=== PATIENT | female | born 1975 ===

== ENCOUNTER 2018-01-01 02:54 | Inpatient (IN) | payer BC ==
--- NOTE | 2018-01-01 03:44 | C.PDOC ---
History Of Present Illness 42 year old female presents to the ER as a transfer from [facility] for psych admission. Patient has a Hx of ambien overdose 1.5 days ago. She was medically cleared by [facility]. Chief Complaint (Nursing): Psychiatric Evaluation History Per: Patient History/Exam Limitations: no limitations Current Symptoms Are (Timing): Still Present Suicide/Self Injury Attempted (Context): None Involuntary Hold By: None Recent travel outside of the [place]: No Past Medical History Reviewed: Historical Data, Nursing Documentation, Vital Signs Vital Signs: Last Vital Signs Temp 98.8 F 01/01/18 02:59 Pulse 73 01/01/18 05:46 Resp 18 01/01/18 05:46 BP 111/70 01/01/18 05:46 Pulse Ox 96 01/01/18 06:01 - Medical History PMH: Anxiety, Bipolar Disorder, Depression, Hyperthyroidism Family History: States: Unknown Family Hx - Social History Hx Alcohol Use: Yes Hx Substance Use: No - Immunization History Hx Tetanus Toxoid Vaccination: No Hx Influenza Vaccination: No Hx Pneumococcal Vaccination: No Review Of Systems Constitutional: Negative for: Fever, Chills Cardiovascular: Negative for: Chest Pain, Palpitations Respiratory: Negative for: Cough, Shortness of Breath Gastrointestinal: Negative for: Nausea, Vomiting Physical Exam - Physical Exam Appears: Other (Lethargic, Hypotensive) Skin: Normal Color, Warm, Dry Head: Atraumatic, Normacephalic Eye(s): bilateral: Normal Inspection Oral Mucosa: Moist Neck: Normal, Supple Chest: Symmetrical, No Tenderness Cardiovascular: Rhythm Regular Respiratory: Normal Breath Sounds, No Rales, No Rhonchi, No Wheezing Gastrointestinal/Abdominal: Soft, No Tenderness Neurological/Psych: Oriented x3, Normal Speech ED Course And Treatment - Laboratory Results Result Diagrams: 01/01/18 03:54 01/01/18 03:54 ECG: Interpreted By Me, Viewed By Me ECG Rhythm: Sinus Rhythm ECG Interpretation: No Acute Changes Interpretation Of ECG: NSR, low voltage QRS, no acute changes Rate From EC O2 Sat by Pulse Oximetry: 96 (Room air) Pulse Ox Interpretation: Normal Progress Note: CT head, blood work, and urinalysis ordered. IV fluids administered. On reevaluation, patient's BP is 98/58, she is now alert, responds to verbal stimuli and questioning. Patient was accepted by Dr. Wilson for admission, waiting for patient to be more alert before admission. Disposition Discussed With DrTeresa: Willy Stevens Comment: ICU eval.-Dr. Padilla notified, evaluated patient in the ER. Doctor Will See Patient In The: Hospital - Disposition Referrals: Non [facility] Provider, [Primary Care Provider] - Disposition: HOSPITALIZED Disposition Time: 05:59 Condition: GUARDED Forms: [facility] (Haitian) - POA Present On Arrival: None - Clinical Impression Clinical Impression: Drug overdose, intentional, Suicidal ideation - Scribe Statement The provider has reviewed the documentation as recorded by the Scribe Avinash Dejesus All medical record entries made by the Scribe were at my direction and personally dictated by me. I have reviewed the chart and agree that the record accurately reflects my personal performance of the history, physical exam, medical decision making, and the department course for this patient. I have also personally directed, reviewed, and agree with the discharge instructions and disposition.
[2018-01-01] MEDS ORDERED: Sodium Chloride 0.9% 1,000 ML IV ONE ×4 (03:46→05:44)
[2018-01-01 03:57] LABS: BASO # 0.1 K/uL (0.0-0.2); BASO % 0.9 % (0.0-2.0); EOS # 0.1 K/uL (0.0-0.7); EOS % 0.8 % (0.0-4.0); HEMOGLOBIN 11.7 g/dL (11.0-16.0); LYMPH # 1.5 K/uL (1.0-4.3); LYMPH % 16.8 % (20.0-40.0); MEAN CELL VOLUME 91.1 fL (81.0-99.0); MEAN CORPUSCULAR HEMOGLOBIN 31.2 pg (27.0-31.0); MEAN CORPUSCULAR HGB CONC 34.2 g/dL (33.0-37.0); MONO # 0.5 K/uL (0.0-0.8); MONO % 5.6 % (0.0-10.0); NEUT # 6.9 K/uL (1.8-7.0); NEUT % 75.9 % (50.0-75.0); RBC 3.75 Mil/uL (3.80-5.20); RED CELL DISTRIBUTION WIDTH 12.6 % (11.5-14.5); WHITE BLOOD COUNT 9.1 K/uL (4.8-10.8)
[2018-01-01 04:11] LABS: ALB/GLOB RATIO 1.3 (1.0-2.1); ALBUMIN 3.4 g/dL (3.5-5.0); ALT/SGPT 33 U/L (9-52); AST/SGOT 19 U/L (14-36); BLOOD UREA NITROGEN 9 mg/dL (7-17); CALCIUM 8.4 mg/dl (8.6-10.4); GFR AFRICAN-AMERICAN > 60; GFR NON-AFRICAN AMERICAN > 60
[2018-01-01 04:15] LABS: PROTHROMBIN TIME 10.8 SECONDS (9.7-12.2)
[2018-01-01 04:16] LABS: ACETAMINOPHEN < 10.0 ug/mL (10.0-30.0); SALICYLATE < 1.0 mg/dL 1
[2018-01-01 04:18] LABS: ABG ALLEN TEST POS; ARTERIAL BLOOD GAS HCO3 24.7 mmol/L (21-28); ARTERIAL BLOOD GAS HEMOGLOBIN 10.9 g/dL (11.7-17.4); ARTERIAL BLOOD GAS O2 SAT 96.8 % (95-98); ARTERIAL BLOOD GAS PCO2 41 mm/Hg (35-45); ARTERIAL BLOOD GAS PH 7.39 (7.35-7.45); ARTERIAL BLOOD GAS PO2 68 mm/Hg (80-100); ARTERIAL BLOOD GAS TCO2 26.1 mmol/L (22-28)
[2018-01-01 04:31] LABS: HCG,QUALITATIVE URINE NEGATIVE (NEGATIVE); URINE BACTERIA OCC (<OCC); URINE BILIRUBIN NEGATIVE (NEGATIVE); URINE BLOOD NEGATIVE (NEGATIVE); URINE CLARITY Clear (Clear); URINE COLOR Yellow (YELLOW); URINE GLUCOSE (UA) NORMAL (Normal); URINE LEUKOCYTE ESTERASE NEG Leu/uL (Negative); URINE PROTEIN NEGATIVE (NEGATIVE)
[2018-01-01 04:40] LABS: BARBITURATES, UR NEGATIVE (NEGATIVE); OPIATES, UR NEGATIVE (NEGATIVE); PHENCYCLIDINE, UR NEGATIVE (NEGATIVE)
[2018-01-01 04:43] LABS: BENZODIAZEPINES, UR POSITIVE (NEGATIVE)
[2018-01-01 04:46] LABS: T3 1.01 nmol/L (1.49-2.60)
[2018-01-01] MEDS ORDERED: Flumazenil 0.1 mg/ml Inj (5ml) IVP ONE (05:34)
[2018-01-01] MEDS ORDERED: Flumazenil 0.1 mg/ml Inj (5ml) IVP STA (05:41)
--- NOTE | 2018-01-01 06:00 | CP.PCM.CON ---
History of Present Illness - History of Present Illness History of Present Illness: 42 year old female with h/o bipolar disorder/ depression,asthma,hypothyroidism presents to the ER as a transfer from [facility] for psych admission. Patient has a Hx of ambien overdose 12/30/17. She was medically cleared by [facility]. In ER patient was very lethargic,hypotensive,hypoxic with urine toxicology positive for benzodizepines.She was given flumezanil with improvement in mental status.Patient stated that in addition to ambien she took clonazepam (about 60 tab) and xanax (15 tab) prescribed by her psychiatrist. Poison control recommended continued observation for respiratory depression Review of Systems - Review of Systems Systems not reviewed;Unavailable: Altered Mental Status - Constitutional Constitutional: Lethargy. absent: Chills, Weakness - EENT Eyes: absent: Pain Nose/Mouth/Throat: absent: Hoarsness, Sore Throat - Cardiovascular Cardiovascular: absent: Chest Pain, Dyspnea - Respiratory Respiratory: absent: Cough, Dyspnea - Gastrointestinal Gastrointestinal: absent: Abdominal Pain, Nausea, Vomiting - Genitourinary Genitourinary: absent: Dysuria - Musculoskeletal Musculoskeletal: absent: Stiffness - Neurological Neurological: absent: Focal Weakness Past Patient History - Infectious Disease Hx of Infectious Diseases: None - Past Social History Smoking Status: Never Smoked Home Situation {Lives}: With Family - PULMONARY Hx Asthma: Yes - ENDOCRINE/METABOLIC Hx Hyperthyroidism: Yes - PSYCHIATRIC Hx Anxiety: Yes Hx Bipolar Disorder: Yes Hx Depression: Yes Hx Substance Use: No - SURGICAL HISTORY Hx Section: Yes Other/Comment: BREAST AUGMENTATION., ABDOMINOPLASTY - ANESTHESIA Hx Anesthesia: Yes Hx Anesthesia Reactions: No Meds Allergies/Adverse Reactions: Allergies Allergy/AdvReac Type Severity Reaction Status Date / Time levofloxacin [From Levaquin] Allergy Verified 01/01/18 02:58 - Medications Medications: Current Medications Sodium Chloride (Sodium Chloride 0.9%) 1,000 mls @ 100 mls/hr IV .Q10H ONE Stop: 01/01/18 14:39 Sodium Chloride (Sodium Chloride 0.9%) 1,000 mls @ 1,000 mls/hr IV .Q1H ONE Stop: 01/01/18 06:43 Last Admin: 01/01/18 05:46 Dose: 1,000 mls/hr Physical Exam - Constitutional Appears: No Acute Distress - Head Exam Head Exam: ATRAUMATIC, NORMAL INSPECTION, NORMOCEPHALIC - Eye Exam Eye Exam: EOMI, Normal appearance Pupil Exam: NORMAL ACCOMODATION - ENT Exam ENT Exam: Mucous Membranes Moist - Neck Exam Neck exam: Positive for: Normal Inspection - Respiratory Exam Respiratory Exam: Clear to Auscultation Bilateral, NORMAL BREATHING PATTERN - Cardiovascular Exam Cardiovascular Exam: REGULAR RHYTHM - GI/Abdominal Exam GI & Abdominal Exam: Normal Bowel Sounds, Soft. absent: Tenderness - Extremities Exam Extremities exam: Positive for: normal inspection, pedal pulses present. Negative for: pedal edema, tenderness - Back Exam Back exam: NORMAL INSPECTION - Neurological Exam Neurological exam: Alert, CN II-XII Intact, Oriented x3 Additional comments: Soon afer flumezanil patient was able to give history and gradually became drowsy again - Skin Skin Exam: Intact, Normal Color, Warm Results - Vital Signs Recent Vital Signs: Last Vital Signs Temp 98.8 F 01/01/18 02:59 Pulse 73 01/01/18 05:46 Resp 18 01/01/18 05:46 BP 111/70 01/01/18 05:46 Pulse Ox 96 01/01/18 05:58 - Labs Result Diagrams: 01/01/18 03:54 01/01/18 03:54 Labs: Laboratory Results - last 24 hr 01/01/18 01/01/18 01/01/18 03:54 03:54 04:03 WBC 9.1 RBC 3.75 L Hgb 11.7 Hct 34.2 MCV 91.1 MCH 31.2 H MCHC 34.2 RDW 12.6 Plt Count 203 MPV 7.0 L Neut % (Auto) 75.9 H Lymph % (Auto) 16.8 L [place] % (Auto) 5.6 Eos % (Auto) 0.8 Baso % (Auto) 0.9 Neut # (Auto) 6.9 Lymph # (Auto) 1.5 [place] # (Auto) 0.5 Eos # (Auto) 0.1 Baso # (Auto) 0.1 PT 10.8 INR 1.0 APTT 26 Puncture Site pCO2 pO2 HCO3 ABG pH ABG Total CO2 ABG O2 Saturation ABG Base Excess ABG Hemoglobin ABG Carboxyhemoglobin POC ABG HHb (Measured) ABG Methemoglobin David Test A-a O2 Difference Respiratory Index Hgb O2 Saturation Liter Flow FiO2 Sodium 143 Potassium 3.8 Chloride 108 H Carbon Dioxide 27 Anion Gap 12 BUN 9 Creatinine 0.9 Est GFR ( Amer) > 60 Est GFR (Non-Af Amer) > 60 Random Glucose 107 H Calcium 8.4 L Total Bilirubin 0.5 AST 19 ALT 33 Alkaline Phosphatase 55 Troponin I < 0.0120 Total Protein 6.0 L Albumin 3.4 L Globulin 2.6 Albumin/Globulin Ratio 1.3 Free T4 Total T3 1.01 L Urine Color Urine Clarity Urine pH Ur Specific [place] Urine Protein Urine Glucose (UA) Urine Ketones Urine Blood Urine Nitrate Urine Bilirubin Urine Urobilinogen Ur Leukocyte Esterase Urine WBC (Auto) Urine RBC (Auto) Urine Bacteria Urine HCG, Qual Salicylates Urine Opiates Screen Urine Methadone Screen Acetaminophen Ur Barbiturates Screen Ur Phencyclidine Scrn Ur Amphetamines Screen U Benzodiazepines Scrn U Oth Cocaine Metabols U Cannabinoids Screen Alcohol, Quantitative < 10 01/01/18 01/01/18 01/01/18 04:03 04:08 04:18 WBC RBC Hgb Hct MCV MCH MCHC RDW Plt Count MPV Neut % (Auto) Lymph % (Auto) [place] % (Auto) Eos % (Auto) Baso % (Auto) Neut # (Auto) Lymph # (Auto) [place] # (Auto) Eos # (Auto) Baso # (Auto) PT INR APTT Puncture Site R rad pCO2 41 pO2 68 L HCO3 24.7 ABG pH 7.39 ABG Total CO2 26.1 ABG O2 Saturation 96.8 ABG Base Excess -0.2 ABG Hemoglobin 10.9 L ABG Carboxyhemoglobin 1.8 H POC ABG HHb (Measured) 3.1 ABG Methemoglobin 0.8 David Test Pos A-a O2 Difference 30.0 Respiratory Index 0.4 Hgb O2 Saturation 94.3 L Liter Flow 0 FiO2 21.0 Sodium Potassium Chloride Carbon Dioxide Anion Gap BUN Creatinine Est GFR ( Amer) Est GFR (Non-Af Amer) Random Glucose Calcium Total Bilirubin AST ALT Alkaline Phosphatase Troponin I Total Protein Albumin Globulin Albumin/Globulin Ratio Free T4 Total T3 Urine Color Yellow Urine Clarity Clear Urine pH 5.0 Ur Specific [place] 1.011 Urine Protein Negative Urine Glucose (UA) Normal Urine Ketones Trace Urine Blood Negative Urine Nitrate Negative Urine Bilirubin Negative Urine Urobilinogen 2.0 H Ur Leukocyte Esterase Neg Urine WBC (Auto) 10 H Urine RBC (Auto) < 1 Urine Bacteria Occ H Urine HCG, Qual Negative Salicylates < 1.0 Urine Opiates Screen Urine Methadone Screen Acetaminophen < 10.0 L Ur Barbiturates Screen Ur Phencyclidine Scrn Ur Amphetamines Screen U Benzodiazepines Scrn U Oth Cocaine Metabols U Cannabinoids Screen Alcohol, Quantitative 01/01/18 01/01/18 04:18 04:19 WBC RBC Hgb Hct MCV MCH MCHC RDW Plt Count MPV Neut % (Auto) Lymph % (Auto) [place] % (Auto) Eos % (Auto) Baso % (Auto) Neut # (Auto) Lymph # (Auto) [place] # (Auto) Eos # (Auto) Baso # (Auto) PT INR APTT Puncture Site pCO2 pO2 HCO3 ABG pH ABG Total CO2 ABG O2 Saturation ABG Base Excess ABG Hemoglobin ABG Carboxyhemoglobin POC ABG HHb (Measured) ABG Methemoglobin David Test A-a O2 Difference Respiratory Index Hgb O2 Saturation Liter Flow FiO2 Sodium Potassium Chloride Carbon Dioxide Anion Gap BUN Creatinine Est GFR ( Amer) Est GFR (Non-Af Amer) Random Glucose Calcium Total Bilirubin AST ALT Alkaline Phosphatase Troponin I Total Protein Albumin Globulin Albumin/Globulin Ratio Free T4 1.17 Total T3 Urine Color Urine Clarity Urine pH Ur Specific [place] Urine Protein Urine Glucose (UA) Urine Ketones Urine Blood Urine Nitrate Urine Bilirubin Urine Urobilinogen Ur Leukocyte Esterase Urine WBC (Auto) Urine RBC (Auto) Urine Bacteria Urine HCG, Qual Salicylates Urine Opiates Screen Negative Urine Methadone Screen Negative Acetaminophen Ur Barbiturates Screen Negative Ur Phencyclidine Scrn Negative Ur Amphetamines Screen Negative U Benzodiazepines Scrn Positive U Oth Cocaine Metabols Negative U Cannabinoids Screen Negative Alcohol, Quantitative - EKG Data EKG Interpreted by: Myself Assessment & Plan - Assessment and Plan (Free Text) Assessment: 1.Respiratory depression/Drug overdose with Benzodiazepines and ambien/hypoxia O2 close observation 2.Hypothyroidism on levothyroxine 3.asthma- bronchodilatos PRN 4.Bipolar disorder/Drug overdose-Psych evaluation
--- NOTE | 2018-01-01 07:22 | RAD ---
Date of service: 01/01/2018 HISTORY: r/o aspiration COMPARISON: No prior. FINDINGS: LUNGS: No active pulmonary disease. PLEURA: No significant pleural effusion identified, no pneumothorax apparent. CARDIOVASCULAR: Normal. OSSEOUS STRUCTURES: No significant abnormalities. VISUALIZED UPPER ABDOMEN: Normal. OTHER FINDINGS: None. IMPRESSION: No definite active cardiopulmonary disease appreciable.
--- NOTE | 2018-01-01 07:24 | CP.PCM.HP ---
<Petra Christian - Last Filed: 01/01/18 08:53> History of Present Illness - History of Present Illness History of Present Illness: 42 yo F w/ PMHx of depression, bipolar disorder, asthma, and hypothyroidism, transferred to [facility] from [facility] for Psych admission 07/19 to suicide attempt on 12/30. She reports attempted suicide by overdose, taking Ambien, Klonopin, and Xanax. Pt reports she has 2 previous suicide attempts in the past requiring hospitalization; and is currently under the care of Dr. Tim Mandujano who prescribes her these medications. Pt reports suicide attempted due to feelings of excessive loneliness. Pt lives at home with her 2 children(17 and 12 yo) and . Pt reports weakness and fatigue. Pt denies headache, dizziness, chest pain, SOB, abdominal pain, nausea. Present on Admission - Present on Admission Any Indicators Present on Admission: No History of DVT/PE: No History of Uncontrolled Diabetes: No Urinary Catheter: No Decubitus Ulcer Present: No Review of Systems - Constitutional Constitutional: Fatigue, Lethargy, Weakness. absent: Headache - EENT Eyes: absent: Blurred Vision - Cardiovascular Cardiovascular: absent: Chest Pain, Irregular Heart Rhythm, Palpitations - Respiratory Respiratory: absent: Cough, Dyspnea - Gastrointestinal Gastrointestinal: absent: Abdominal Pain, Diarrhea, Nausea - Musculoskeletal Musculoskeletal: Muscle Weakness - Psychiatric Psychiatric: Depression, Hopelessness, Suicidal Ideation Past Patient History - Infectious Disease Hx of Infectious Diseases: None - Past Social History Smoking Status: Never Smoked Home Situation {Lives}: With Family - PULMONARY Hx Asthma: Yes - ENDOCRINE/METABOLIC Hx Hyperthyroidism: Yes - PSYCHIATRIC Hx Anxiety: Yes Hx Bipolar Disorder: Yes Hx Depression: Yes Hx Substance Use: No - SURGICAL HISTORY Hx Section: Yes Other/Comment: BREAST AUGMENTATION., ABDOMINOPLASTY - ANESTHESIA Hx Anesthesia: Yes Hx Anesthesia Reactions: No Meds Allergies/Adverse Reactions: Allergies Allergy/AdvReac Type Severity Reaction Status Date / Time levofloxacin [From Levaquin] Allergy Verified 01/01/18 02:58 Physical Exam - Constitutional Appears: Confused - Head Exam Head Exam: ATRAUMATIC, NORMAL INSPECTION, NORMOCEPHALIC - Eye Exam Eye Exam: EOMI - ENT Exam ENT Exam: Mucous Membranes Dry - Respiratory Exam Respiratory Exam: Clear to Auscultation Bilateral, NORMAL BREATHING PATTERN. absent: Wheezes - Cardiovascular Exam Cardiovascular Exam: REGULAR RHYTHM. absent: Bradycardia - GI/Abdominal Exam GI & Abdominal Exam: Normal Bowel Sounds, Soft. absent: Tenderness - Extremities Exam Extremities exam: Positive for: normal capillary refill, normal inspection. Negative for: pedal edema - Back Exam Back exam: NORMAL INSPECTION - Neurological Exam Neurological exam: Oriented x3 - Psychiatric Exam Psychiatric exam: Depressed, Suicidal Ideation - Skin Skin Exam: Normal Color Results - Vital Signs Recent Vital Signs: Last Vital Signs Temp 97.5 F L 01/01/18 06:45 Pulse 73 01/01/18 06:22 Resp 18 01/01/18 06:22 BP 114/69 01/01/18 06:22 Pulse Ox 100 01/01/18 06:22 - Labs Result Diagrams: 01/01/18 03:54 01/01/18 03:54 Labs: Laboratory Results - last 24 hr 01/01/18 01/01/18 01/01/18 03:54 03:54 04:03 WBC 9.1 RBC 3.75 L Hgb 11.7 Hct 34.2 MCV 91.1 MCH 31.2 H MCHC 34.2 RDW 12.6 Plt Count 203 MPV 7.0 L Neut % (Auto) 75.9 H Lymph % (Auto) 16.8 L [place] % (Auto) 5.6 Eos % (Auto) 0.8 Baso % (Auto) 0.9 Neut # (Auto) 6.9 Lymph # (Auto) 1.5 [place] # (Auto) 0.5 Eos # (Auto) 0.1 Baso # (Auto) 0.1 PT 10.8 INR 1.0 APTT 26 Puncture Site pCO2 pO2 HCO3 ABG pH ABG Total CO2 ABG O2 Saturation ABG Base Excess ABG Hemoglobin ABG Carboxyhemoglobin POC ABG HHb (Measured) ABG Methemoglobin David Test A-a O2 Difference Respiratory Index Hgb O2 Saturation Liter Flow FiO2 Sodium 143 Potassium 3.8 Chloride 108 H Carbon Dioxide 27 Anion Gap 12 BUN 9 Creatinine 0.9 Est GFR ( Amer) > 60 Est GFR (Non-Af Amer) > 60 Random Glucose 107 H Calcium 8.4 L Total Bilirubin 0.5 AST 19 ALT 33 Alkaline Phosphatase 55 Troponin I < 0.0120 Total Protein 6.0 L Albumin 3.4 L Globulin 2.6 Albumin/Globulin Ratio 1.3 Free T4 Total T3 1.01 L Urine Color Urine Clarity Urine pH Ur Specific [place] Urine Protein Urine Glucose (UA) Urine Ketones Urine Blood Urine Nitrate Urine Bilirubin Urine Urobilinogen Ur Leukocyte Esterase Urine WBC (Auto) Urine RBC (Auto) Urine Bacteria Urine HCG, Qual Salicylates Urine Opiates Screen Urine Methadone Screen Acetaminophen Ur Barbiturates Screen Ur Phencyclidine Scrn Ur Amphetamines Screen U Benzodiazepines Scrn U Oth Cocaine Metabols U Cannabinoids Screen Alcohol, Quantitative < 10 01/01/18 01/01/18 01/01/18 04:03 04:08 04:18 WBC RBC Hgb Hct MCV MCH MCHC RDW Plt Count MPV Neut % (Auto) Lymph % (Auto) [place] % (Auto) Eos % (Auto) Baso % (Auto) Neut # (Auto) Lymph # (Auto) [place] # (Auto) Eos # (Auto) Baso # (Auto) PT INR APTT Puncture Site R rad pCO2 41 pO2 68 L HCO3 24.7 ABG pH 7.39 ABG Total CO2 26.1 ABG O2 Saturation 96.8 ABG Base Excess -0.2 ABG Hemoglobin 10.9 L ABG Carboxyhemoglobin 1.8 H POC ABG HHb (Measured) 3.1 ABG Methemoglobin 0.8 David Test Pos A-a O2 Difference 30.0 Respiratory Index 0.4 Hgb O2 Saturation 94.3 L Liter Flow 0 FiO2 21.0 Sodium Potassium Chloride Carbon Dioxide Anion Gap BUN Creatinine Est GFR ( Amer) Est GFR (Non-Af Amer) Random Glucose Calcium Total Bilirubin AST ALT Alkaline Phosphatase Troponin I Total Protein Albumin Globulin Albumin/Globulin Ratio Free T4 Total T3 Urine Color Yellow Urine Clarity Clear Urine pH 5.0 Ur Specific [place] 1.011 Urine Protein Negative Urine Glucose (UA) Normal Urine Ketones Trace Urine Blood Negative Urine Nitrate Negative Urine Bilirubin Negative Urine Urobilinogen 2.0 H Ur Leukocyte Esterase Neg Urine WBC (Auto) 10 H Urine RBC (Auto) < 1 Urine Bacteria Occ H Urine HCG, Qual Negative Salicylates < 1.0 Urine Opiates Screen Urine Methadone Screen Acetaminophen < 10.0 L Ur Barbiturates Screen Ur Phencyclidine Scrn Ur Amphetamines Screen U Benzodiazepines Scrn U Oth Cocaine Metabols U Cannabinoids Screen Alcohol, Quantitative 01/01/18 01/01/18 04:18 04:19 WBC RBC Hgb Hct MCV MCH MCHC RDW Plt Count MPV Neut % (Auto) Lymph % (Auto) [place] % (Auto) Eos % (Auto) Baso % (Auto) Neut # (Auto) Lymph # (Auto) [place] # (Auto) Eos # (Auto) Baso # (Auto) PT INR APTT Puncture Site pCO2 pO2 HCO3 ABG pH ABG Total CO2 ABG O2 Saturation ABG Base Excess ABG Hemoglobin ABG Carboxyhemoglobin POC ABG HHb (Measured) ABG Methemoglobin David Test A-a O2 Difference Respiratory Index Hgb O2 Saturation Liter Flow FiO2 Sodium Potassium Chloride Carbon Dioxide Anion Gap BUN Creatinine Est GFR ( Amer) Est GFR (Non-Af Amer) Random Glucose Calcium Total Bilirubin AST ALT Alkaline Phosphatase Troponin I Total Protein Albumin Globulin Albumin/Globulin Ratio Free T4 1.17 Total T3 Urine Color Urine Clarity Urine pH Ur Specific [place] Urine Protein Urine Glucose (UA) Urine Ketones Urine Blood Urine Nitrate Urine Bilirubin Urine Urobilinogen Ur Leukocyte Esterase Urine WBC (Auto) Urine RBC (Auto) Urine Bacteria Urine HCG, Qual Salicylates Urine Opiates Screen Negative Urine Methadone Screen Negative Acetaminophen Ur Barbiturates Screen Negative Ur Phencyclidine Scrn Negative Ur Amphetamines Screen Negative U Benzodiazepines Scrn Positive U Oth Cocaine Metabols Negative U Cannabinoids Screen Negative Alcohol, Quantitative Assessment & Plan - Assessment and Plan (Free Text) Assessment: 42 yo F transferred from [place] for psych admission 2/2 to suicide attempt. Pt admitted to ICU for further management of respiratory depression 2/2 benzodiazepine overdose. 1. Hypoxic respiratory depression 2/2 benzodiazepine OD -flumazenil .5mg given in ED -maintain spO2>92% 2. Suicide attempt -Dr. Wilson accepted admission to psych -will transfer once medically stable 3. Hypothyroidism -levothyroxine 50mcg/day Ppx -protonix 40mg Case discussed with Dr. Summers - Date & Time Date: 01/01/18 Time: 08:47 Decision To Admit - Pt Status Changed To: Hospital Disposition Of: Inpatient - Admit Certification Admit to Inpatient:: After my assessment, the patient will require hospitalization for at least two midnights. This is because of the severity of symptoms shown, intensity of services needed, and/or the medical risk in this patient being treated as an outpatient. - InPatient: Physician Admission Certification:: ICU admission until medically stable - . Bed Request Type: ICU Admitting Physician: Doug Summers <Doug Summers - Last Filed: 01/02/18 09:35> Results - Vital Signs Recent Vital Signs: Last Vital Signs Temp 98.2 F 01/01/18 16:00 Pulse 74 01/01/18 18:10 Resp 22 01/01/18 18:10 BP 100/60 01/01/18 17:46 Pulse Ox 100 01/01/18 18:10 - Labs Result Diagrams: 01/02/18 06:24 01/02/18 06:22 Labs: Laboratory Results - last 24 hr 01/01/18 01/01/18 01/01/18 03:54 03:54 04:03 WBC 9.1 RBC 3.75 L Hgb 11.7 Hct 34.2 MCV 91.1 MCH 31.2 H MCHC 34.2 RDW 12.6 Plt Count 203 MPV 7.0 L Neut % (Auto) 75.9 H Lymph % (Auto) 16.8 L [place] % (Auto) 5.6 Eos % (Auto) 0.8 Baso % (Auto) 0.9 Neut # (Auto) 6.9 Lymph # (Auto) 1.5 [place] # (Auto) 0.5 Eos # (Auto) 0.1 Baso # (Auto) 0.1 PT 10.8 INR 1.0 APTT 26 Puncture Site pCO2 pO2 HCO3 ABG pH ABG Total CO2 ABG O2 Saturation ABG Base Excess ABG Hemoglobin ABG Carboxyhemoglobin POC ABG HHb (Measured) ABG Methemoglobin David Test A-a O2 Difference Respiratory Index Hgb O2 Saturation Liter Flow FiO2 Sodium 143 Potassium 3.8 Chloride 108 H Carbon Dioxide 27 Anion Gap 12 BUN 9 Creatinine 0.9 Est GFR ( Amer) > 60 Est GFR (Non-Af Amer) > 60 Random Glucose 107 H Calcium 8.4 L Total Bilirubin 0.5 AST 19 ALT 33 Alkaline Phosphatase 55 Troponin I < 0.0120 Total Protein 6.0 L Albumin 3.4 L Globulin 2.6 Albumin/Globulin Ratio 1.3 Free T4 Total T3 1.01 L TSH 3rd Generation 4.44 Urine Color Urine Clarity Urine pH Ur Specific [place] Urine Protein Urine Glucose (UA) Urine Ketones Urine Blood Urine Nitrate Urine Bilirubin Urine Urobilinogen Ur Leukocyte Esterase Urine WBC (Auto) Urine RBC (Auto) Urine Bacteria Urine HCG, Qual Salicylates Urine Opiates Screen Urine Methadone Screen Acetaminophen Ur Barbiturates Screen Ur Phencyclidine Scrn Ur Amphetamines Screen U Benzodiazepines Scrn U Oth Cocaine Metabols U Cannabinoids Screen Alcohol, Quantitative < 10 01/01/18 01/01/18 01/01/18 04:03 04:08 04:18 WBC RBC Hgb Hct MCV MCH MCHC RDW Plt Count MPV Neut % (Auto) Lymph % (Auto) [place] % (Auto) Eos % (Auto) Baso % (Auto) Neut # (Auto) Lymph # (Auto) [place] # (Auto) Eos # (Auto) Baso # (Auto) PT INR APTT Puncture Site R rad pCO2 41 pO2 68 L HCO3 24.7 ABG pH 7.39 ABG Total CO2 26.1 ABG O2 Saturation 96.8 ABG Base Excess -0.2 ABG Hemoglobin 10.9 L ABG Carboxyhemoglobin 1.8 H POC ABG HHb (Measured) 3.1 ABG Methemoglobin 0.8 David Test Pos A-a O2 Difference 30.0 Respiratory Index 0.4 Hgb O2 Saturation 94.3 L Liter Flow 0 FiO2 21.0 Sodium Potassium Chloride Carbon Dioxide Anion Gap BUN Creatinine Est GFR ( Amer) Est GFR (Non-Af Amer) Random Glucose Calcium Total Bilirubin AST ALT Alkaline Phosphatase Troponin I Total Protein Albumin Globulin Albumin/Globulin Ratio Free T4 Total T3 TSH 3rd Generation Urine Color Yellow Urine Clarity Clear Urine pH 5.0 Ur Specific [place] 1.011 Urine Protein Negative Urine Glucose (UA) Normal Urine Ketones Trace Urine Blood Negative Urine Nitrate Negative Urine Bilirubin Negative Urine Urobilinogen 2.0 H Ur Leukocyte Esterase Neg Urine WBC (Auto) 10 H Urine RBC (Auto) < 1 Urine Bacteria Occ H Urine HCG, Qual Negative Salicylates < 1.0 Urine Opiates Screen Urine Methadone Screen Acetaminophen < 10.0 L Ur Barbiturates Screen Ur Phencyclidine Scrn Ur Amphetamines Screen U Benzodiazepines Scrn U Oth Cocaine Metabols U Cannabinoids Screen Alcohol, Quantitative 01/01/18 01/01/18 04:18 04:19 WBC RBC Hgb Hct MCV MCH MCHC RDW Plt Count MPV Neut % (Auto) Lymph % (Auto) [place] % (Auto) Eos % (Auto) Baso % (Auto) Neut # (Auto) Lymph # (Auto) [place] # (Auto) Eos # (Auto) Baso # (Auto) PT INR APTT Puncture Site pCO2 pO2 HCO3 ABG pH ABG Total CO2 ABG O2 Saturation ABG Base Excess ABG Hemoglobin ABG Carboxyhemoglobin POC ABG HHb (Measured) ABG Methemoglobin David Test A-a O2 Difference Respiratory Index Hgb O2 Saturation Liter Flow FiO2 Sodium Potassium Chloride Carbon Dioxide Anion Gap BUN Creatinine Est GFR ( Amer) Est GFR (Non-Af Amer) Random Glucose Calcium Total Bilirubin AST ALT Alkaline Phosphatase Troponin I Total Protein Albumin Globulin Albumin/Globulin Ratio Free T4 1.17 Total T3 TSH 3rd Generation Urine Color Urine Clarity Urine pH Ur Specific [place] Urine Protein Urine Glucose (UA) Urine Ketones Urine Blood Urine Nitrate Urine Bilirubin Urine Urobilinogen Ur Leukocyte Esterase Urine WBC (Auto) Urine RBC (Auto) Urine Bacteria Urine HCG, Qual Salicylates Urine Opiates Screen Negative Urine Methadone Screen Negative Acetaminophen Ur Barbiturates Screen Negative Ur Phencyclidine Scrn Negative Ur Amphetamines Screen Negative U Benzodiazepines Scrn Positive U Oth Cocaine Metabols Negative U Cannabinoids Screen Negative Alcohol, Quantitative Attending/Attestation - Attestation I have personally seen and examined this patient.: Yes I have fully participated in the care of the patient.: Yes I have reviewed all pertinent clinical information: Yes Notes (Text): Seen and examined by me.She was sleeping,But arousable,talking /soft voice.No complain Clear lungs,soft abdomen D/W resident Psychiatry consult 1;1 observation I agree with the resident's documentation of the assessment and the plan
--- NOTE | 2018-01-01 07:34 | CT ---
Date of service: 01/01/2018 PROCEDURE: CT HEAD WITHOUT CONTRAST. HISTORY: OVERDOSE OF AMBIEN COMPARISON: None available. TECHNIQUE: Axial computed tomography images were obtained through the head/brain without intravenous contrast. Radiation dose: Total exam DLP = 795 mGy-cm. This CT exam was performed using one or more of the following dose reduction techniques: Automated exposure control, adjustment of the mA and/or kV according to patient size, and/or use of iterative reconstruction technique. FINDINGS: HEMORRHAGE: No intracranial hemorrhage. BRAIN: No mass effect or edema. No atrophy or chronic microvascular ischemic changes. VENTRICLES: Unremarkable. No hydrocephalus. CALVARIUM: Unremarkable. PARANASAL SINUSES: Unremarkable as visualized. No significant inflammatory changes. MASTOID AIR CELLS: Unremarkable as visualized. No inflammatory changes. OTHER FINDINGS: None. IMPRESSION: No acute intracranial abnormality. If symptoms persists, consider correlation with MRI. These findings were preliminarily reported at 5:12 a.m. on 01/01/[address] Deacon Gee from [employer].
[2018-01-01] MEDS: Levothyroxine 50 MCG TAB PO SCH (08:13)
--- NOTE | 2018-01-01 12:30 | PCM.PSYCH ---
Initial Psychiatric Evaluation - Initial Psychiatric Evaluation Type of Admission: Voluntary Legal Status: Capacity Chief Complaint (in patient's own words): "Tired" History of Present Illness and Precipitating Events: She is seen, chart reviewed and case discussed. Consult was requested bc of her suicide attempt. Poor historian due to over- sedation She was transferred from [facility] for psych admission but she was found to be too lethargic and admitted to ICU for close f/u. This is a 42 y/o LF, with 3 children. She lives with her ex- in separate rooms and yesterday her found her home OD'ed on Ambien, reportedly with 10-15 pills. She wrote a suicide letter for her family. It is not clear yet how long she has been contemplating but she reported to staff at [place] that she did it b/c of loneliness. This is her 3rd attempt and she sees Dr. Mandujano for outpatient care. She was hospitalized previously in [facility] and diagnosed with bipolar disorder. No known drug or alcohol hx She now says she is happy to be alive and that she is no longer suicidal, however, she is unreliable and sedated. She denied AVH/paranoia Medical hx: Unknown Family psych hx: Unknown Past psych hx: As above Current Medications: Active Medications Generic Name Dose Route Start Last Admin Trade Name Freq PRN Reason Stop Dose Admin Sodium Chloride 1,000 mls @ 100 mls/hr 01/01/18 04:40 01/01/18 07:00 Sodium Chloride 0.9% IV 01/01/18 14:39 100 mls/hr .Q10H ONE Administration Levothyroxine Sodium 50 mcg 01/01/18 06:30 01/01/18 08:13 Synthroid PO Not Given DAILY@0630 TARA Pantoprazole Sodium 40 mg 01/01/18 10:00 01/01/18 10:16 Protonix Inj IVP 40 mg DAILY TARA Administration Past Psychiatric History - Past Psychiatric History Previous Treatment History: Inpatient Pertinent Medical Hx (Current Medical&Sleep Prob, Allergies): Allergies Allergy/AdvReac Type Severity Reaction Status Date / Time levofloxacin [From Levaquin] Allergy Verified 01/01/18 02:58 Albuterol HFA [Ventolin HFA 90 mcg/actuation (8 g)] 2 puff IH [id number] 01/01/18 Levothyroxine [Synthroid] 50 mcg PO DAILY 01/01/18 Zolpidem [Ambien] 10 mg PO HS 01/01/18 Review of Systems - Neurological Neurological: Weakness - Psychiatric Psychiatric: Abnormal Sleep Pattern, Anhedonia, Anxiety, Depression, Difficulty Concentrating. absent: Hallucinations, Homicidal Ideation, Suicidal Ideation Mental Status Examination - Personal Presentation Personal Presentation: Looks stated age - Affect Affect: Blunted - Motor Activity Motor Activity: Calm - Reliability in Providing Information Reliability in Providing Information: Poor, due to cognitve impairment - Speech Speech: Organized - Mood Mood: Depressed, Anxious - Formal Thought Process Formal Thought Process: No Impairment - Cognitive Functions Orientation: Person, Place Sensorium: Lethargic Attention/Concentration: Easily distracted Abstract Thinking: [place] Estimate of Intelligence: Average Judgement: Imparied, as evidence by: Poor judgement Memory: Recent impaired, as evidence by: Inability to recall events of the day, Remote intact, as evidenced by: Ability to recall historical events - Risk Risk: Diminished functioning - Strength & Assets Inventory Strength & Assets Inventory: Cooperative - Limitations Limitations: Other (family problems) DSM 5 DX - DSM 5 DSM 5 Diagnosis: Bipolar I disorder - depressed r/o Borderline personality - Recommended/Plan of Treatment Treatment Recommendations and Plan of Treatment: prn medications for now Will start antidepressant treatment after she is less sedated Support and psychoed 1:1 for now Transfer to psychiatry when medically clear, call ad writer first 33 min
--- NOTE | 2018-01-01 17:22 | CARD ---
APPROVED REPORT Date of service: 01/01/2018 EKG Measurement Heart [id number] <Conclusion> Normal sinus rhythm Low voltage QRS Borderline ECG
[2018-01-02] MEDS: Levothyroxine 50 MCG TAB PO SCH (06:28)
[2018-01-02 06:37] LABS: BASO % 0.4 % (0.0-2.0); EOS # 0.1 K/uL (0.0-0.7); EOS % 1.9 % (0.0-4.0); HEMOGLOBIN 12.1 g/dL (11.0-16.0); LYMPH # 2.1 K/uL (1.0-4.3); LYMPH % 27.1 % (20.0-40.0); MEAN CELL VOLUME 90.1 fL (81.0-99.0); MEAN CORPUSCULAR HEMOGLOBIN 31.7 pg (27.0-31.0); MEAN CORPUSCULAR HGB CONC 35.1 g/dL (33.0-37.0); MEAN PLATELET VOLUME 7.2 fL (7.2-11.7); MONO # 0.5 K/uL (0.0-0.8); MONO % 6.1 % (0.0-10.0); NEUT % 64.5 % (50.0-75.0); NRBC % 0.1 % (0.0-2.0); RBC 3.83 Mil/uL (3.80-5.20); RED CELL DISTRIBUTION WIDTH 12.7 % (11.5-14.5); WHITE BLOOD COUNT 7.7 K/uL (4.8-10.8)
[2018-01-02 06:45] LABS: ALB/GLOB RATIO 1.5 (1.0-2.1); ALBUMIN 3.7 g/dL (3.5-5.0); ALT/SGPT 52 U/L (9-52); AST/SGOT 29 U/L (14-36); BLOOD UREA NITROGEN 5 mg/dL (7-17); CALCIUM 8.9 mg/dl (8.6-10.4); GFR AFRICAN-AMERICAN > 60; GFR NON-AFRICAN AMERICAN > 60
--- NOTE | 2018-01-02 09:29 | CP.PCM.PN ---
Subjective - Date & Time of Evaluation Date of Evaluation: 01/02/18 Time of Evaluation: 09:26 - Subjective Subjective: patient is sitting and eating breakfast, Denies pain,no nausea,no vomiting,\not bradycadic BP 97/61 asymptomatic Objective - Vital Signs/Intake and Output Vital Signs (last 24 hours): Temp Pulse Resp BP Pulse Ox 97.7 F 92 H 15 97/61 L 100 01/02/18 08:00 01/02/18 08:50 01/02/18 08:50 01/02/18 07:31 01/02/18 08:50 Intake and Output: 01/02/18 01/02/18 06:59 18:59 Intake Total 360 0 Balance 360 0 - Medications Medications: Current Medications Famotidine (Pepcid) 20 mg PO DAILY [facility] Last Admin: 01/02/18 09:26 Dose: 20 mg Levothyroxine Sodium (Synthroid) 50 mcg PO DAILY@0630 [facility] Last Admin: 01/02/18 06:28 Dose: 50 mcg - Labs Labs: 01/02/18 06:24 01/02/18 06:22 PT 10.8 SECONDS (9.7-12.2) 01/01/18 04:03 INR 1.0 01/01/18 04:03 APTT 26 SECONDS (21-34) 01/01/18 04:03 - Constitutional Appears: Non-toxic, No Acute Distress - Head Exam Head Exam: NORMAL INSPECTION - Eye Exam Eye Exam: Normal appearance - ENT Exam ENT Exam: Mucous Membranes Moist - Neck Exam Neck Exam: Full ROM - Respiratory Exam Respiratory Exam: Clear to Ausculation Bilateral, NORMAL BREATHING PATTERN - Cardiovascular Exam Cardiovascular Exam: REGULAR RHYTHM - Extremities Exam Extremities Exam: Full ROM - Back Exam Back Exam: NORMAL INSPECTION - Neurological Exam Neurological Exam: Awake, Oriented x3 - Psychiatric Exam Psychiatric exam: Normal Mood - Skin Skin Exam: Dry Assessment and Plan - Assessment and Plan (Free Text) Plan: This is 42years old female transferred from [place] for psych admission .S/P suicide attempt. Pt admitted to ICU for further management of respiratory depression 2/2 benzodiazepine overdose.Had Flumazenil 1. Suicide attempt past history of suicidal attempts continue 1;1 observation Patient is medically stable for transfer to psychiatry unit we will follow up with Dr. Wilson 2. Hypothyroidism -levothyroxine 50mcg/day 3.Prophylaxis GI on pepside DVt-Out of bed /ambulate -pending transfer to psychiatry unit
--- NOTE | 2018-01-02 14:14 | PCM.PYCHPN ---
Psychiatric Progress Note - Psychiatric Progress Note Patient seen today, length of contact: 18 min Patient Chief Complaint: "I am still tired" Problems Identified/Issues Discussed: The pt is seen, chart reviewed, case discussed with staff. Support given, CBT and CA used briefly No new symptoms reported, improving slowly and needs more time No SEs from medications, risks discussed. After care discussed, will go to for psych admission - still suicidal but contracts for safety. Medication Change: Yes (Meds started) Medical Record Reviewed: Yes Mental Status Examination - Cognitive Function Orientation: Person, Place, Situation, Time Memory: Impaired Attention: Poor Concentration: Poor Association: WNL Fund of Knowledge: WNL - Mood Mood: Depressed, Anxious - Affect Affect: Blunted - Speech Speech: Slurred - Formal Thought Process Formal Thought Process: No Impairment - Suicidal Ideation Suicidal Ideation: No - Homicidal Ideation Homicidal Ideation: No Goal/Treatment Plan - Goal/Treatment Plan Need for Continued Stay: Severe depression anxiety, Discharge may exacerbated symptoms, Severe functional impairment Progress Toward Problem(s) and Goals/Treatment Plan: Wellbutrin for depression Depakote for bipolar d/o Support and psychoed CBT Attend groups Refer to day program Transfer to
[2018-01-02] MEDS: buPROPion 150 mg/24 Hours XL Tab PO SCH (14:53)
[2018-01-02] MEDS: Divalproex 250 mg DR Tab PO SCH (17:33)
[2018-01-03] MEDS: Levothyroxine 50 MCG TAB PO SCH (06:18)
[2018-01-03] MEDS: Divalproex 250 mg DR Tab PO SCH ×2 (09:50→18:16)
[2018-01-03] MEDS: buPROPion 150 mg/24 Hours XL Tab PO SCH (09:50)
--- NOTE | 2018-01-03 21:42 | PCM.PYCHPN ---
Psychiatric Progress Note - Psychiatric Progress Note Patient seen today, length of contact: 17 min Patient Chief Complaint: "I am not well yet" Problems Identified/Issues Discussed: The pt is seen, chart reviewed, case discussed with staff. Seen alone and with team The pt is compliant with medications and reports no side-effects. Symptoms are improving but needs more time to stabilize. After care discussed, her current psychiatrist allegedly has an unproductive practice for the patient (via telepsych from [place], and plus she works for him) (?) . She agreed to switch. support and psychoeducation given. Medication Change: Yes (Meds started) Medical Record Reviewed: Yes Mental Status Examination - Cognitive Function Orientation: Person, Place, Situation, Time Memory: Intact Attention: Poor Concentration: Poor Association: WNL Fund of Knowledge: WNL - Mood Mood: Depressed, Anxious - Affect Affect: Constricted - Speech Speech: Appropriate - Formal Thought Process Formal Thought Process: No Impairment - Suicidal Ideation Suicidal Ideation: No - Homicidal Ideation Homicidal Ideation: No Goal/Treatment Plan - Goal/Treatment Plan Need for Continued Stay: Severe depression anxiety, Discharge may exacerbated symptoms, Severe functional impairment Progress Toward Problem(s) and Goals/Treatment Plan: Wellbutrin for depression Depakote for bipolar d/o Support and psychoed CBT Attend groups Refer to day program
[2018-01-04] MEDS: Levothyroxine 50 MCG TAB PO SCH (06:23)
[2018-01-04] MEDS: buPROPion 150 mg/24 Hours XL Tab PO SCH (10:12)
--- NOTE | 2018-01-04 13:43 | PCM.PYCHPN ---
Psychiatric Progress Note - Psychiatric Progress Note Patient seen today, length of contact: 16 min Patient Chief Complaint: "I wonder why I am like that" Problems Identified/Issues Discussed: The pt is seen, chart reviewed, case discussed with staff. The pt is compliant with medications and reports no side-effects. Symptoms are improving but needs more time to stabilize. Still depressed and anxious She wonders why she thinks about suicide and attempts (3rd time now) - Discussed Pt attends groups and activities. Support given, psycho-education provided. After care discussed. Will go to [facility] or [place] outpt clinic Medication Change: Yes (meds adjusted) Medical Record Reviewed: Yes Mental Status Examination - Cognitive Function Orientation: Person, Place, Situation, Time Memory: Intact Attention: Poor Concentration: Poor Association: WNL Fund of Knowledge: WNL - Mood Mood: Depressed, Anxious - Affect Affect: Constricted - Speech Speech: Appropriate - Formal Thought Process Formal Thought Process: No Impairment - Suicidal Ideation Suicidal Ideation: No - Homicidal Ideation Homicidal Ideation: No Goal/Treatment Plan - Goal/Treatment Plan Need for Continued Stay: Severe depression anxiety, Discharge may exacerbated symptoms, Severe functional impairment Progress Toward Problem(s) and Goals/Treatment Plan: Wellbutrin for depression Geodon for mood swings Refused Depakote for weight gain Support and psychoed CBT Attend groups Refer to day program Estimated Date of D/C: 01/08/18
[2018-01-05] MEDS: Levothyroxine 50 MCG TAB PO SCH (06:37)
[2018-01-05] MEDS: buPROPion 150 mg/24 Hours XL Tab PO SCH (09:43)
[2018-01-05] MEDS ORDERED: Magnesium Hydroxide Susp 30 ml UD PO ONE (17:04)
--- NOTE | 2018-01-05 20:19 | PCM.BM ---
<Allison Preciado - Last Filed: 01/05/18 20:16> Treatment Plan Problems - Problems identified on initial assessmt Depression Date Initiated: 01/02/18 Time Initiated: 15:00 Assessment reference: NA Status: Active Suicidal Ideations Date Initiated: 01/02/18 Time Initiated: 15:00 Assessment reference: NA Status: Active Treatment assets and liabiliti Patient Assests: adapts well, cooperative, self-reliant, ADL independent Patient Liabilities: poor support system, relationship conflicts, medical problems - Milieu Protocol Maintain good personal hygiene: daily Encourage regular showers, daily Remind patient to perform daily oral care, daily Assist patient to perform ADL's Maintain personal safety: every shift Educate patient to report safety concerns to staff, every shift Monitor environment for contraband/sharps Medication safety: Monitor for expected outcome, potential side effects: every shift, Assess barriers to learning: every shift, Assess readiness for medication education: every shift Milieu Narrative: Wellbutrin for depression Depakote for bipolar d/o Support and psychoed CBT Attend groups Refer to day program Discharge/Continuing Care - Treatment Team Participation Patient/Family/SO Statement: Wellbutrin for depression Depakote for bipolar d/o Support and psychoed CBT Attend groups Refer to day program <Ilir Wilson - Last Filed: 01/05/18 21:40> - Diagnosis (1) Bipolar disorder, now depressed Status: Acute Interventions: 01/05/18 21:39 * Assess/adjust medications daily and /or as needed * See patient on an individual basis 7x/week to assess level of manic behaviors and stability * Discuss risks, benefits, side effects and alternatives of medications * (2) Suicidal ideation Status: Acute Interventions: 01/05/18 21:39 * Assess/adjust medications daily and /or as needed * Discuss risks, benefits, side effects and alternatives of medications * See patient on an individual basis 7x/week to assess level of suicidal thoughts *
--- NOTE | 2018-01-05 21:50 | PCM.PYCHPN ---
Psychiatric Progress Note - Psychiatric Progress Note Patient seen today, length of contact: 17 min Patient Chief Complaint: "I am still down" Problems Identified/Issues Discussed: The pt is seen, chart reviewed, case discussed with staff. The pt is compliant with medications and reports no side-effects. Symptoms are improving but needs more time to stabilize. Still depressed and anxious- CBT used Pt attends groups and activities. Support given, psycho-education provided. After care discussed. Will go to [facility] or [place] outpt clinic Medication Change: Yes (meds adjusted) Medical Record Reviewed: Yes Mental Status Examination - Cognitive Function Orientation: Person, Place, Situation, Time Memory: Intact Attention: Poor Concentration: Poor Association: WNL Fund of Knowledge: WNL - Mood Mood: Depressed, Anxious - Affect Affect: Constricted - Speech Speech: Appropriate - Formal Thought Process Formal Thought Process: No Impairment - Suicidal Ideation Suicidal Ideation: No - Homicidal Ideation Homicidal Ideation: No Goal/Treatment Plan - Goal/Treatment Plan Need for Continued Stay: Severe depression anxiety, Discharge may exacerbated symptoms, Severe functional impairment Progress Toward Problem(s) and Goals/Treatment Plan: Wellbutrin for depression Geodon for mood swings Support and psychoed CBT Attend groups Refer to day program Estimated Date of D/C: 01/08/18
[2018-01-06] MEDS: Levothyroxine 50 MCG TAB PO SCH (06:27)
[2018-01-06] MEDS: buPROPion 150 mg/24 Hours XL Tab PO SCH (10:11)
--- NOTE | 2018-01-06 13:29 | PCM.PYCHPN ---
Psychiatric Progress Note - Psychiatric Progress Note Patient seen today, length of contact: 16 min Patient Chief Complaint: "I am still depressed today" Problems Identified/Issues Discussed: Ms. Hart is seen, chart reviewed, case discussed with staff. She said she was depressed and did not sleep last night. She has some vague suicidal ideation, but she agreed that she would tell the staff if those thoughts become worse. Contracted for safety and agreed to follow safety plan. No intention, urge or plan. She has been in contact with her family and plans to see her tomorrow at 11am. The pt is compliant with medications and reports no side-effects. Symptoms are improving but needs more time to stabilize. Pt attends groups and activities. Support given, psycho-education provided. After care discussed. Medication Change: Yes (meds adjusted) Medical Record Reviewed: Yes Mental Status Examination - Cognitive Function Orientation: Person, Place, Situation, Time Memory: Intact Attention: Poor Concentration: Poor Association: WNL Fund of Knowledge: WNL - Mood Mood: Depressed, Anxious - Affect Affect: Constricted - Speech Speech: Appropriate - Formal Thought Process Formal Thought Process: No Impairment - Suicidal Ideation Suicidal Ideation: No - Homicidal Ideation Homicidal Ideation: No Goal/Treatment Plan - Goal/Treatment Plan Need for Continued Stay: Severe depression anxiety, Discharge may exacerbated symptoms, Severe functional impairment Progress Toward Problem(s) and Goals/Treatment Plan: Wellbutrin for depression Geodon for mood swings Support and psychoed CBT Attend groups Refer to day program Estimated Date of D/C: 01/08/18
[2018-01-07] MEDS: Levothyroxine 50 MCG TAB PO SCH (06:36)
[2018-01-07] MEDS: buPROPion 150 mg/24 Hours XL Tab PO SCH (09:29)
--- NOTE | 2018-01-07 12:04 | PCM.PYCHPN ---
Psychiatric Progress Note - Psychiatric Progress Note Patient seen today, length of contact: 15 min Patient Chief Complaint: "I am not well" Problems Identified/Issues Discussed: Ms. Hart is seen, chart reviewed, case discussed with staff. The pt is compliant with medications and reports no side-effects. Pt reports that she has been having poor sleep because of racing thoughts and anxiety. She agrees to Lexapro being added to her treatment. Ostensibly, she remains in bed most of the day. Pt attends groups and activities. Support given, psycho-education provided. After care discussed. Medication Change: Yes (add Lexapro) Medical Record Reviewed: Yes Mental Status Examination - Cognitive Function Orientation: Person, Place, Situation, Time Memory: Intact Attention: Poor Concentration: Poor Association: WNL Fund of Knowledge: WNL - Mood Mood: Depressed, Anxious - Affect Affect: Constricted - Speech Speech: Appropriate - Formal Thought Process Formal Thought Process: No Impairment - Suicidal Ideation Suicidal Ideation: No - Homicidal Ideation Homicidal Ideation: No Goal/Treatment Plan - Goal/Treatment Plan Need for Continued Stay: Severe depression anxiety, Discharge may exacerbated symptoms, Severe functional impairment Progress Toward Problem(s) and Goals/Treatment Plan: Wellbutrin for depression Lexapro added for depression and anxiety Geodon for mood swings Support and psychoed CBT Attend groups Refer to day program Estimated Date of D/C: 01/10/18
[2018-01-07 12:56] LABS: URINE BILIRUBIN NEGATIVE (NEGATIVE); URINE BLOOD 3+ (NEGATIVE); URINE CLARITY Hazy (Clear); URINE COLOR Yellow (YELLOW); URINE GLUCOSE (UA) NORMAL (Normal); URINE LEUKOCYTE ESTERASE 3+ Leu/uL (Negative); URINE PROTEIN NEGATIVE (NEGATIVE); URINE UROBILINOGEN NORMAL mg/dL (0.2-1.0)
[2018-01-07 13:13] LABS: SQUAMOUS EPITHIAL 4 /hpf (0-5)
[2018-01-07 13:14] LABS: URINE BACTERIA FEW (<OCC)
[2018-01-07] MEDS: Tmp-Smz 800 mg-160 mg DS Tab PO SCH (18:53)
[2018-01-07] MEDS ORDERED: Magnesium Hydroxide Susp 30 ml UD PO ONE (19:05)
[2018-01-08] MEDS: Tmp-Smz 800 mg-160 mg DS Tab PO SCH ×2 (05:58→18:27)
[2018-01-08] MEDS: Levothyroxine 50 MCG TAB PO SCH (06:32)
[2018-01-08] MEDS: buPROPion 150 mg/24 Hours XL Tab PO SCH (09:49)
--- NOTE | 2018-01-08 12:52 | PCM.PYCHPN ---
Psychiatric Progress Note - Psychiatric Progress Note Patient seen today, length of contact: 28 min Patient Chief Complaint: "Depressed" Problems Identified/Issues Discussed: The pt is seen, chart reviewed, case discussed with staff. The pt is compliant with medications and reports no side-effects. Symptoms are improving but needs more time to stabilize. Bactrim DS added bc of ongoing UTI sxs Family meeting held and and sister came They c/o patient "giving up easily" Ways to deal with depression discussed together. Pt attends groups and activities. Support given, psycho-education provided. After care discussed. Medication Change: Yes (bactrim DS) Medical Record Reviewed: Yes Mental Status Examination - Cognitive Function Orientation: Person, Place, Situation, Time Memory: Intact Attention: Poor Concentration: Poor Association: WNL Fund of Knowledge: WNL - Mood Mood: Depressed, Anxious - Affect Affect: Constricted - Speech Speech: Appropriate - Formal Thought Process Formal Thought Process: No Impairment - Suicidal Ideation Suicidal Ideation: No - Homicidal Ideation Homicidal Ideation: No Goal/Treatment Plan - Goal/Treatment Plan Need for Continued Stay: Severe depression anxiety, Discharge may exacerbated symptoms, Severe functional impairment Progress Toward Problem(s) and Goals/Treatment Plan: Wellbutrin for depression Lexapro added for depression and anxiety Geodon for mood swings Support and psychoed CBT Attend groups Refer to day program Estimated Date of D/C: 01/13/18 If changed, why: still very depressed
[2018-01-08] MEDS ORDERED: Bisacodyl 5mg EC Tab PO ONE ×2 (12:54→14:15)
[2018-01-08 21:05] LABS: FREE T4 1.13 ng/dL (0.78-2.19)
[2018-01-09] MEDS: Levothyroxine 50 MCG TAB PO SCH (06:31)
[2018-01-09] MEDS: Tmp-Smz 800 mg-160 mg DS Tab PO SCH ×2 (06:31→18:01)
[2018-01-09] MEDS: buPROPion 150 mg/24 Hours XL Tab PO SCH (10:26)
--- NOTE | 2018-01-09 14:19 | PCM.PYCHPN ---
Psychiatric Progress Note - Psychiatric Progress Note Patient seen today, length of contact: 17 min Patient Chief Complaint: "So so" Problems Identified/Issues Discussed: The pt is seen, chart reviewed, case discussed with staff. The pt is compliant with medications and reports no side-effects. Symptoms are improving but needs more time to stabilize. She c/o poor sleep and anxiety Not suicidal but still withdrawn Medication Change: Yes (increase trazodone) Medical Record Reviewed: Yes Mental Status Examination - Cognitive Function Orientation: Person, Place, Situation, Time Memory: Intact Attention: Poor Concentration: Poor Association: WNL Fund of Knowledge: WNL - Mood Mood: Depressed, Anxious - Affect Affect: Constricted - Speech Speech: Appropriate - Formal Thought Process Formal Thought Process: No Impairment - Suicidal Ideation Suicidal Ideation: No - Homicidal Ideation Homicidal Ideation: No Goal/Treatment Plan - Goal/Treatment Plan Need for Continued Stay: Severe depression anxiety, Discharge may exacerbated symptoms, Severe functional impairment Progress Toward Problem(s) and Goals/Treatment Plan: Wellbutrin for depression Lexapro added for depression and anxiety Geodon for mood swings Support and psychoed CBT Attend groups Refer to day program Estimated Date of D/C: 01/13/18
[2018-01-10] MEDS: Levothyroxine 50 MCG TAB PO SCH (05:40)
[2018-01-10 06:19] VITALS: O2SAT 98
[2018-01-10] MEDS: Tmp-Smz 800 mg-160 mg DS Tab PO SCH ×2 (06:37→09:47)
[2018-01-10] MEDS: buPROPion 150 mg/24 Hours XL Tab PO SCH (09:45)
--- NOTE | 2018-01-10 09:51 | PCM.BM ---
<Katarina Sequeira - Last Filed: 01/10/18 09:51> Treatment Plan Problems - Problems identified on initial assessmt Depression Date Initiated: 01/02/18 Time Initiated: 15:00 Assessment reference: NA Status: Active Suicidal Ideations Date Initiated: 01/02/18 Time Initiated: 15:00 Assessment reference: NA Status: Active Treatment assets and liabiliti Patient Assests: adapts well, cooperative, self-reliant, ADL independent Patient Liabilities: poor support system, relationship conflicts, medical problems - Milieu Protocol Maintain good personal hygiene: daily Encourage regular showers, daily Remind patient to perform daily oral care, daily Assist patient to perform ADL's Maintain personal safety: every shift Educate patient to report safety concerns to staff, every shift Monitor environment for contraband/sharps Medication safety: Monitor for expected outcome, potential side effects: every shift, Assess barriers to learning: every shift, Assess readiness for medication education: every shift Milieu Narrative: Wellbutrin for depression Lexapro added for depression and anxiety Geodon for mood swings Support and psychoed CBT Attend groups Refer to day program Discharge/Continuing Care - Treatment Team Participation Patient/Family/SO Statement: Wellbutrin for depression Lexapro added for depression and anxiety Geodon for mood swings Support and psychoed CBT Attend groups Refer to day program Treatment Plan Review - Problem Depression Time Initiated: 15:00 Suicidal Ideations Time Initiated: 15:00 - Discharge / Continuing Care Discharge to:: Home, With Family Behavioral Health Services: Partial hospital Health Needs: Medications/Rx, Recreational/Social <Jeanne Albarran - Last Filed: 01/10/18 10:12> Treatment Plan Review - Problem Depression Date Initiated: 01/10/18 Progress toward outcomes: improved Suicidal Ideations Date Initiated: 01/10/18 Progress toward outcomes: improved <Ilir Wilson - Last Filed: 01/10/18 15:03> - Diagnosis (1) Bipolar disorder, now depressed Status: Acute Interventions: 01/10/18 15:03 * Assess/adjust medications daily and /or as needed * See patient on an individual basis 7x/week to assess level of manic behaviors and stability * Discuss risks, benefits, side effects and alternatives of medications * (2) Suicidal ideation Status: Acute Interventions: 01/10/18 15:03 * Assess/adjust medications daily and /or as needed * Discuss risks, benefits, side effects and alternatives of medications * See patient on an individual basis 7x/week to assess level of suicidal thoughts *
[2018-01-10] MEDS ORDERED: Cefpodoxime (Vantin) 200 mg Tab PO ONE (11:30)
--- NOTE | 2018-01-10 15:11 | PCM.PYCHPN ---
Psychiatric Progress Note - Psychiatric Progress Note Patient seen today, length of contact: 16 min Patient Chief Complaint: "Sleep is not good" Problems Identified/Issues Discussed: The pt is seen, chart reviewed, case discussed with staff. The pt is compliant with medications and reports no side-effects. Symptoms are improving but needs more time to stabilize. Her urine cultire came resistant to Macrobid and bactrim. After discussing with pharmacy, a cephalosporin that will not cause allergic rxn started. Benadyl added . She is informed Pt attends groups and activities. Support given, psycho-education provided. After care discussed. Medication Change: Yes (Add ambien) Medical Record Reviewed: Yes Mental Status Examination - Cognitive Function Orientation: Person, Place, Situation, Time Memory: Intact Attention: Poor Concentration: Poor Association: WNL Fund of Knowledge: WNL - Mood Mood: Depressed, Anxious - Affect Affect: Constricted - Speech Speech: Appropriate - Formal Thought Process Formal Thought Process: No Impairment - Suicidal Ideation Suicidal Ideation: No - Homicidal Ideation Homicidal Ideation: No Goal/Treatment Plan - Goal/Treatment Plan Need for Continued Stay: Severe depression anxiety, Discharge may exacerbated symptoms, Severe functional impairment Progress Toward Problem(s) and Goals/Treatment Plan: Wellbutrin for depression Lexapro added for depression and anxiety Geodon for mood swings Support and psychoed CBT Attend groups Refer to day program mayra for UTI Estimated Date of D/C: 01/13/18
[2018-01-10] MEDS ORDERED: Cefpodoxime (Vantin) 200 mg Tab PO SCH (19:00)
[2018-01-10] MEDS: Cefpodoxime (Vantin) 200 mg Tab PO SCH (21:51)
[2018-01-10] MEDS ORDERED: Tmp-Smz 800 mg-160 mg DS Tab PO SCH (22:00)
[2018-01-11] MEDS: Levothyroxine 50 MCG TAB PO SCH (06:11)
[2018-01-11] MEDS: Cefpodoxime (Vantin) 200 mg Tab PO SCH ×2 (08:43→21:44)
[2018-01-11] MEDS: buPROPion 150 mg/24 Hours XL Tab PO SCH (09:30)
--- NOTE | 2018-01-11 23:18 | PCM.PYCHPN ---
Psychiatric Progress Note - Psychiatric Progress Note Patient seen today, length of contact: 16 min Patient Chief Complaint: "I have anxiety" Problems Identified/Issues Discussed: The pt is seen, chart reviewed, case discussed with staff. Pt reported she had anxiety earlier in the AM. However, after taking meds she is feeling better. Pt still had depressive symptoms and needs more time for stabilization. Support given, CBT and [facility] used briefly Pt is improving slowly and needs more time No SEs from medications, risks discussed. After care discussed Medication Change: Yes (increase lexapro) Medical Record Reviewed: Yes Mental Status Examination - Cognitive Function Orientation: Person, Place, Situation, Time Memory: Intact Attention: Poor Concentration: Poor Association: WNL Fund of Knowledge: WNL Decription of patient's judgement and insights: improving/improving - Mood Mood: Depressed, Anxious - Affect Affect: Constricted - Speech Speech: Appropriate - Formal Thought Process Formal Thought Process: No Impairment - Suicidal Ideation Suicidal Ideation: No Plan: denied - Homicidal Ideation Homicidal Ideation: No Plan: denied Goal/Treatment Plan - Goal/Treatment Plan Need for Continued Stay: Severe depression anxiety, Discharge may exacerbated symptoms, Severe functional impairment Progress Toward Problem(s) and Goals/Treatment Plan: Continue current treatment and management. Supportive therapy provided Psychoeducation provided. Therapy in milieu Estimated Date of D/C: 01/13/18 - Smoking Cessation Smoking Cessation Initiated: Yes
[2018-01-12] MEDS: Levothyroxine 50 MCG TAB PO SCH (06:01)
[2018-01-12 06:22] VITALS: RESP 18
[2018-01-12] MEDS: buPROPion 150 mg/24 Hours XL Tab PO SCH (09:05)
[2018-01-12] MEDS: Cefpodoxime (Vantin) 200 mg Tab PO SCH ×2 (09:05→21:22)
--- NOTE | 2018-01-12 14:22 | PCM.PYCHPN ---
Psychiatric Progress Note - Psychiatric Progress Note Patient seen today, length of contact: 16 min Patient Chief Complaint: "My anxiety is little better" Problems Identified/Issues Discussed: The pt is seen, chart reviewed, case discussed with staff. Pt reported her anxiety earlier is little better. Pt is still isolated to her room, not attending group activities. Pt still had depressive symptoms and needs more time for stabilization. Support given, CBT and [place] used briefly No SEs from medications, risks discussed. After care discussed Medication Change: No Medical Record Reviewed: Yes Mental Status Examination - Cognitive Function Orientation: Person, Place, Situation, Time Memory: Intact Attention: Poor Concentration: Poor Association: WNL Fund of Knowledge: WNL Decription of patient's judgement and insights: improving/improving - Mood Mood: Depressed, Anxious - Affect Affect: Constricted - Speech Speech: Appropriate - Formal Thought Process Formal Thought Process: No Impairment - Suicidal Ideation Suicidal Ideation: No Plan: denied - Homicidal Ideation Homicidal Ideation: No Plan: denied Goal/Treatment Plan - Goal/Treatment Plan Need for Continued Stay: Severe depression anxiety, Discharge may exacerbated symptoms, Severe functional impairment Progress Toward Problem(s) and Goals/Treatment Plan: Continue current treatment and management. Supportive therapy provided Psychoeducation provided. Therapy in milieu Estimated Date of D/C: 01/13/18
[2018-01-13 05:58] VITALS: TEMP 97.9
[2018-01-13] MEDS: Levothyroxine 50 MCG TAB PO SCH (06:07)
[2018-01-13 09:14] VITALS: BP 100/65; PULSE 108
[2018-01-13] MEDS: Cefpodoxime (Vantin) 200 mg Tab PO SCH (09:36)
[2018-01-13] MEDS: buPROPion 150 mg/24 Hours XL Tab PO SCH (09:36)
--- NOTE | 2018-01-13 12:10 | PCM.PYCHDC ---
Mental Status Examination - Mental Status Examination Orientation: Person Discharge Summary - Discharge Note Consultations:: List each consultation separately and include: 1. Reason for request. 2. Findings. 3. Follow-up Summary of Hospital Course include:: 1. Description of specific treatment plan utilized for patients during their course of treatmen. 2. Summarize the time- course for resolution of acute symptoms and/or regressed behaviors. 3. Describe issues identified and worked on during hospitalization. 4. Describe medication utilized. 5. Describe medical problems identified and treated. 6. Reassessment of suicide risk Summary of Hospital Course: She is seen, chart reviewed and case discussed. Consult was requested bc of her suicide attempt. Poor historian due to over- sedation She was transferred from [facility] for psych admission but she was found to be too lethargic and admitted to ICU for close f/u. This is a 42 y/o LF, with 3 children. She lives with her ex- in separate rooms and yesterday her found her home OD'ed on Ambien, reportedly with 10-15 pills. She wrote a suicide letter for her family. It is not clear yet how long she has been contemplating but she reported to staff at [facility] that she did it b/c of loneliness. This is her 3rd attempt and she sees Dr. Mandujano for outpatient care. She was hospitalized previously in [facility] and diagnosed with bipolar disorder. No known drug or alcohol hx She now says she is happy to be alive and that she is no longer suicidal, however, she is unreliable and sedated. She denied AVH/paranoia Medical hx: Unknown Family psych hx: Unknown Past psych hx: As above Tomorrow [facility] IDT Intake - Diagnosis (1) Bipolar disorder, now depressed Current Visit: Yes Status: Acute (2) Suicidal ideation Current Visit: Yes Status: Acute - Final Diagnosis (DSM 5) Condition upon Discharge: GUARDED Disposition: HOME/ ROUTINE Follow-up Treatment Plan: Wellbutrin for depression Lexapro added for depression and anxiety Geodon for mood swings Support and psychoed CBT Attend groups Refer to day program vantin for UTI Prescriptions/Medication Reconciliation: buPROPion XL [Wellbutrin XL] 300 mg PO DAILY #30 t24 Cefpodoxime [Vantin] 200 mg PO Q12H #7 tab Escitalopram [Lexapro] 20 mg PO DAILY #30 tab Famotidine [Pepcid] 20 mg PO DAILY #30 tab hydrOXYzine HCl [Atarax] 25 mg PO DAILY PRN #30 tab PRN Reason: Anxiety Levothyroxine [Synthroid] 50 mcg PO DAILY@629 #30 tab traZODone [Desyrel] 200 mg PO HS PRN #60 tab PRN Reason: Insomnia Ziprasidone [Geodon Cap] 60 mg PO BID #60 cap
== END 2018-01-13 12:51 | disposition home or self-care (01) | DRG 918 ==
LOC: SUPCPDRO 02:54 → C.ER 02:54 → C.9I 06:04 → C.5E 01-02 10:45
PROVIDERS: ADMIT Psychiatry & Neurology Psychiatry; ATTEND Psychiatry & Neurology Psychiatry
PROC: GZHZZZZ Group Psychotherapy (ICD-10-PCS; principal; 2018-01-01)
DX: T42.4X1A Poisoning by benzodiazepines, accidental (unintentional), initial encounter (principal); N39.0 Urinary tract infection, site not specified; Y92.009 Unspecified place in unspecified non-institutional (private) residence as the place of occurrence of the external cause; F31.9 Bipolar disorder, unspecified; E03.9 Hypothyroidism, unspecified; F41.9 Anxiety disorder, unspecified; J45.909 Unspecified asthma, uncomplicated; R09.02 Hypoxemia; F19.10 Other psychoactive substance abuse, uncomplicated